=== PATIENT | male | born 1985 | race Caucasian/White ===

== ENCOUNTER 2018-10-13 18:57 | Emergency (ER) | payer OTHER ==
[2018-10-13] MEDS ORDERED: Lidocaine 1%* 5 ML VIAL INJ ONE (19:20)
[2018-10-13] MEDS ORDERED: Tetan/Diph/Pertus SYR(Tdap)* 0.5 ML SYR(BOOSTRIX) use SYR IM ONE (19:20)
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
[2018-10-13 20:24] VITALS: BP 140/91
== END 2018-10-13 20:23 | disposition home or self-care (01) ==
LOC: ED 18:57
DX: S81.812A Laceration without foreign body, left lower leg, initial encounter (principal); W22.8XXA Striking against or struck by other objects, initial encounter; Y93.55 Activity, bike riding
CPT/HCPCS: 12002; 90471; 90715; 96372; 99282